=== PATIENT | female | born 1990 | race Caucasian/White ===

== ENCOUNTER 2017-08-23 12:26 | Emergency (ER) | payer MEDICAID ==
[~2017-08-23] VITALS: Ht 170.2 cm; Wt 56.0 kg
[2017-08-23 12:34] VITALS: BP 124/87; Ht 170.2 cm; Wt 56.0 kg
== END 2017-08-23 14:12 | disposition home or self-care (01) ==
LOC: ED 12:26
DX: S62.604A Fracture of unspecified phalanx of right ring finger, initial encounter for closed fracture (principal); S51.011A Laceration without foreign body of right elbow, initial encounter; S61.411A Laceration without foreign body of right hand, initial encounter; S80.211A Abrasion, right knee, initial encounter; S60.511A Abrasion of right hand, initial encounter; W54.8XXA Other contact with dog, initial encounter; Y93.K1 Activity, walking an animal; Y92.89 Other specified places as the place of occurrence of the external cause; Y99.8 Other external cause status
CPT/HCPCS: 90715

== ENCOUNTER 2017-11-13 10:14 | Emergency (ER) | payer OTHER ==
[~2017-11-13] VITALS: Ht 170.2 cm; Wt 54.4 kg
[2017-11-13 10:18] VITALS: Ht 170.2 cm; Wt 54.4 kg
[2017-11-13 11:51] VITALS: BP 111/59
[2017-11-13 12:19] LABS: AMPHETAMINE QUAL UR NONE DETECTED (See below)
== END 2017-11-13 11:52 | disposition home or self-care (01) ==
LOC: ED 10:14
PROVIDERS: Emergency Medicine Emergency Medical Services
DX: F10.129 Alcohol abuse with intoxication, unspecified (principal); F31.9 Bipolar disorder, unspecified
CPT/HCPCS: G0480

== ENCOUNTER 2020-01-01 16:55 | Emergency (ER) | payer OTHER, SELFPAY ==
[~2020-01-01] VITALS: Ht 165.1 cm; Wt 52.2 kg
[2020-01-01 16:59] VITALS: BP 118/76; Ht 165.1 cm; Wt 52.2 kg
== END 2020-01-01 18:17 | disposition left against medical advice (07) ==
LOC: ED 16:55
DX: R53.1 Weakness (principal); R05 Cough; R06.02 Shortness of breath; Z20.828 Contact with and (suspected) exposure to other viral communicable diseases
CPT/HCPCS: U0003-CS

== ENCOUNTER 2020-01-01 20:50 | Emergency (ER) | payer OTHER ==
[~2020-01-01] VITALS: Ht 170.2 cm; Wt 52.2 kg
[2020-01-01 21:04] VITALS: Ht 170.2 cm; Wt 52.2 kg
[2020-01-01 23:33] LABS: UA SPECIFIC GRAVITY 1.015 (1.005-1.035); microscopic required? YES; urine erythrocyte TRACE (NEGATIVE)
[2020-01-02 00:02] LABS: BASOPHIL % 0.3 % (0-2); PLATELET COUNT 272 x10^3mcL (130-400); RED CELL DISTRIBUTION WIDTH 14.5 % (11.5-14.5)
[2020-01-02 00:17] LABS: CALCIUM 7.3 mg/dL (8.5-10.1); CARBON DIOXIDE 29.3 mmol/L (21-32); CHLORIDE SERUM 101 mmol/L (98-107); CREATININE SERUM 0.6 mg/dL (0.6-1.0); GFR1 > 60 mL/min; GLUCOSE SERUM 61 mg/dL (74-106); SODIUM SERUM 139 mmol/L (136-145)
[2020-01-02 00:21] LABS: ALKALINE PHOSPHATASE 46 U/L (46-116); ALT/SGPT 119 U/L (14-59); AST/SGOT 112 U/L (15-37); BILIRUBIN TOTAL 0.4 mg/dL (0.20-1.00); C REACTIVE PROTEIN 7.4 mg/dL (<=0.9); LACTIC DEHYDROGENASE (LDH) 130 U/L (100-190)
[2020-01-02 00:23] LABS: ALBUMIN 3.1 g/dL (3.4-5.0)
[2020-01-02 03:32] VITALS: BP 104/76
== END 2020-01-02 03:32 | disposition home or self-care (01) ==
LOC: ED 20:50
PROVIDERS: Emergency Medicine
DX: E86.0 Dehydration (principal); R11.10 Vomiting, unspecified
CPT/HCPCS: 36600; 83880; J2405; J7030; Q0092; U0003-CS

== ENCOUNTER 2020-01-27 15:06 | Emergency (ER) | payer OTHER ==
[~2020-01-27] VITALS: Ht 170.2 cm; Wt 54.4 kg
[2020-01-27 15:09] VITALS: Ht 170.2 cm; Wt 54.4 kg
[2020-01-27 16:17] LABS: BASOPHIL % 0.2 % (0-2); PLATELET COUNT 387 x10^3mcL (130-400)
[2020-01-27 16:18] LABS: RED CELL DISTRIBUTION WIDTH 14.6 % (11.5-14.5)
[2020-01-27 16:51] LABS: CALCIUM 9.1 mg/dL (8.5-10.1); CARBON DIOXIDE 22.6 mmol/L (21-32); CHLORIDE SERUM 97 mmol/L (98-107); CREATININE SERUM 0.8 mg/dL (0.6-1.0); GFR1 > 60 mL/min; GLUCOSE SERUM 93 mg/dL (74-106); SODIUM SERUM 137 mmol/L (136-145)
[2020-01-27 16:56] LABS: ALBUMIN 4.1 g/dL (3.4-5.0); ALKALINE PHOSPHATASE 78 U/L (46-116); ALT/SGPT 46 U/L (14-59); AST/SGOT 21 U/L (15-37); BILIRUBIN TOTAL 0.6 mg/dL (0.20-1.00)
[2020-01-27 21:07] VITALS: BP 109/79
== END 2020-01-27 21:07 | disposition home or self-care (01) ==
LOC: ED 15:06
PROVIDERS: Emergency Medicine
DX: F10.239 Alcohol dependence with withdrawal, unspecified (principal); R11.10 Vomiting, unspecified
CPT/HCPCS: J2060; J7030

== ENCOUNTER 2020-01-28 19:56 | Inpatient (IN) | payer OTHER ==
[~2020-01-28] VITALS: Ht 170.2 cm; Wt 54.4 kg
[2020-01-28 20:04] VITALS: Ht 170.2 cm; Wt 54.4 kg
[2020-01-28 20:49] LABS: BASOPHIL % 1.4 % (0-2); PLATELET COUNT 293 x10^3mcL (130-400); RED CELL DISTRIBUTION WIDTH 14.4 % (11.5-14.5)
[2020-01-28 20:58] LABS: CALCIUM 8.1 mg/dL (8.5-10.1); CARBON DIOXIDE 26.1 mmol/L (21-32); CHLORIDE SERUM 99 mmol/L (98-107); CREATININE SERUM 0.7 mg/dL (0.6-1.0); GFR1 > 60 mL/min; GLUCOSE SERUM 125 mg/dL (74-106); POTASSIUM SERUM 3.5 mmol/L (3.5-5.1); SODIUM SERUM 135 mmol/L (136-145)
[2020-01-28 21:09] LABS: ALBUMIN 3.4 g/dL (3.4-5.0); ALKALINE PHOSPHATASE 66 U/L (46-116); ALT/SGPT 48 U/L (14-59); AST/SGOT 71 U/L (15-37); BILIRUBIN TOTAL 0.5 mg/dL (0.20-1.00); TOTAL PROTEIN, SERUM 6.6 g/dL (6.4-8.2)
[2020-01-29] VITALS (7 sets, daily range): BP systolic 98–135; BP diastolic 58–88
[2020-01-29] MEDS ORDERED: TRILEPTAL150 MG PO (00:01)
[2020-01-29 06:20] LABS: BASOPHIL % 0.1 % (0-2); PLATELET COUNT 185 x10^3mcL (130-400)
[2020-01-29 06:21] LABS: RED CELL DISTRIBUTION WIDTH 14.6 % (11.5-14.5)
[2020-01-29 07:36] LABS: CALCIUM 7.7 mg/dL (8.5-10.1); CARBON DIOXIDE 25.8 mmol/L (21-32); CHLORIDE SERUM 99 mmol/L (98-107); CREATININE SERUM 0.6 mg/dL (0.6-1.0); GFR1 > 60 mL/min; GLUCOSE SERUM 131 mg/dL (74-106); MAGNESIUM 1.7 mg/dL (1.8-2.4); PHOSPHOROUS 2.1 mg/dL (2.5-4.9); POTASSIUM SERUM 3.6 mmol/L (3.5-5.1); SODIUM SERUM 133 mmol/L (136-145)
[2020-01-29 08:49] LABS: UA SPECIFIC GRAVITY 1.015 (1.005-1.035); microscopic required? YES; urine erythrocyte NEGATIVE (NEGATIVE)
[2020-01-29 09:01] LABS: AMPHETAMINE QUAL UR NONE DETECTED (See below)
[2020-01-29 21:16] LABS: ALBUMIN 2.9 g/dL (3.4-5.0); BILIRUBIN DIRECT 0.44 mg/dL (0.0-0.2); BILIRUBIN TOTAL 0.9 mg/dL (0.20-1.00); TOTAL PROTEIN, SERUM 5.4 g/dL (6.4-8.2)
[2020-01-30 03:00] VITALS: BP 95/60
[2020-01-30 06:10] LABS: BASOPHIL % 0.2 % (0-2); PLATELET COUNT 154 x10^3mcL (130-400); RED CELL DISTRIBUTION WIDTH 14.4 % (11.5-14.5)
[2020-01-30 06:29] LABS: CALCIUM 7.7 mg/dL (8.5-10.1); CHLORIDE SERUM 102 mmol/L (98-107); CREATININE SERUM 0.6 mg/dL (0.6-1.0); GFR1 > 60 mL/min; GLUCOSE SERUM 108 mg/dL (74-106); POTASSIUM SERUM 3.5 mmol/L (3.5-5.1); SODIUM SERUM 135 mmol/L (136-145)
[2020-01-30 06:33] LABS: ALKALINE PHOSPHATASE 48 U/L (46-116); ALT/SGPT 115 U/L (14-59); AST/SGOT 126 U/L (15-37); BILIRUBIN DIRECT 0.43 mg/dL (0.0-0.2); BILIRUBIN TOTAL 0.9 mg/dL (0.20-1.00); MAGNESIUM 1.8 mg/dL (1.8-2.4); PHOSPHOROUS 1.7 mg/dL (2.5-4.9)
[2020-01-30 06:39] LABS: ALBUMIN 2.8 g/dL (3.4-5.0); TOTAL PROTEIN, SERUM 5.3 g/dL (6.4-8.2)
[2020-01-30 08:00] VITALS: BP 95/65
[2020-01-30 11:36] VITALS: BP 107/74
[2020-01-30 13:52] LABS: ALBUMIN 2.9 g/dL (3.4-5.0); BILIRUBIN DIRECT 0.45 mg/dL (0.0-0.2); BILIRUBIN TOTAL 0.89 mg/dL (0.20-1.00); TOTAL PROTEIN, SERUM 5.5 g/dL (6.4-8.2)
[2020-01-30 16:00] VITALS: BP 96/61
[2020-01-30 19:53] VITALS: BP 116/58
[2020-01-30 23:00] VITALS: BP 106/82
[2020-01-31 06:19] LABS: BASOPHIL % 0 % (0-2); PLATELET COUNT 145 x10^3mcL (130-400); RED CELL DISTRIBUTION WIDTH 14.3 % (11.5-14.5)
[2020-01-31 07:33] LABS: ALKALINE PHOSPHATASE 51 U/L (46-116); BILIRUBIN DIRECT 0.47 mg/dL (0.0-0.2); CALCIUM 7.9 mg/dL (8.5-10.1); CARBON DIOXIDE 25.6 mmol/L (21-32); CHLORIDE SERUM 102 mmol/L (98-107); CREATININE SERUM 0.6 mg/dL (0.6-1.0); GFR1 > 60 mL/min; GLUCOSE SERUM 99 mg/dL (74-106); MAGNESIUM 1.7 mg/dL (1.8-2.4); PHOSPHOROUS 2.7 mg/dL (2.5-4.9); POTASSIUM SERUM 3.3 mmol/L (3.5-5.1); SODIUM SERUM 134 mmol/L (136-145)
[2020-01-31 07:34] LABS: ALBUMIN 2.8 g/dL (3.4-5.0); AST/SGOT 1628 U/L (15-37); TOTAL PROTEIN, SERUM 5.4 g/dL (6.4-8.2)
[2020-01-31 07:35] LABS: ALT/SGPT 1175 U/L (14-59)
[2020-01-31 07:57] VITALS: BP 101/63
[2020-01-31 12:38] VITALS: BP 111/79
[2020-01-31 16:01] VITALS: BP 115/84
[2020-01-31 20:20] VITALS: BP 96/65
[2020-02-01 00:34] VITALS: BP 107/78
[2020-02-01 04:00] VITALS: BP 120/79
[2020-02-01 05:46] LABS: BASOPHIL % 0.3 % (0-2); RED CELL DISTRIBUTION WIDTH 14.5 % (11.5-14.5)
[2020-02-01 05:49] LABS: PLATELET COUNT 127 x10^3mcL (130-400)
[2020-02-01 06:07] LABS: ALKALINE PHOSPHATASE 54 U/L (46-116); BILIRUBIN TOTAL 0.63 mg/dL (0.20-1.00); CALCIUM 7.7 mg/dL (8.5-10.1); CARBON DIOXIDE 26.5 mmol/L (21-32); CHLORIDE SERUM 103 mmol/L (98-107); CREATININE SERUM 0.6 mg/dL (0.6-1.0); GFR1 > 60 mL/min; GLUCOSE SERUM 94 mg/dL (74-106); MAGNESIUM 1.9 mg/dL (1.8-2.4); PHOSPHOROUS 3.1 mg/dL (2.5-4.9); POTASSIUM SERUM 3.3 mmol/L (3.5-5.1); SODIUM SERUM 136 mmol/L (136-145)
[2020-02-01 06:08] LABS: ALBUMIN 2.6 g/dL (3.4-5.0); TOTAL PROTEIN, SERUM 5.2 g/dL (6.4-8.2)
[2020-02-01 06:09] LABS: ALT/SGPT 1930 U/L (14-59); AST/SGOT 1293 U/L (15-37)
[2020-02-01 07:15] VITALS: BP 112/78
[2020-02-01 11:40] VITALS: BP 117/88
[2020-02-01 15:15] VITALS: BP 110/80
[2020-02-01 18:21] LABS: ALKALINE PHOSPHATASE 62 U/L (46-116); AST/SGOT 573 U/L (15-37); BILIRUBIN TOTAL 0.9 mg/dL (0.20-1.00); CALCIUM 8.6 mg/dL (8.5-10.1); CARBON DIOXIDE 28.2 mmol/L (21-32); CHLORIDE SERUM 104 mmol/L (98-107); CREATININE SERUM 0.5 mg/dL (0.6-1.0); GFR1 > 60 mL/min; GLUCOSE SERUM 134 mg/dL (74-106); POTASSIUM SERUM 3.6 mmol/L (3.5-5.1); SODIUM SERUM 138 mmol/L (136-145); TOTAL PROTEIN, SERUM 6.2 g/dL (6.4-8.2)
[2020-02-01 18:25] LABS: ALBUMIN 3.1 g/dL (3.4-5.0)
[2020-02-01 18:26] LABS: ALT/SGPT 1743 U/L (14-59)
[2020-02-02 03:27] LABS: BASOPHIL % 0.2 % (0-2); PLATELET COUNT 142 x10^3mcL (130-400)
[2020-02-02 03:28] LABS: RED CELL DISTRIBUTION WIDTH 15.1 % (11.5-14.5)
[2020-02-02 04:05] LABS: CALCIUM 8.2 mg/dL (8.5-10.1); CARBON DIOXIDE 28.8 mmol/L (21-32); CHLORIDE SERUM 106 mmol/L (98-107); CREATININE SERUM 0.6 mg/dL (0.6-1.0); GFR1 > 60 mL/min; GLUCOSE SERUM 100 mg/dL (74-106); POTASSIUM SERUM 3.7 mmol/L (3.5-5.1); SODIUM SERUM 139 mmol/L (136-145)
[2020-02-02 04:11] LABS: CALCIUM 8.1 mg/dL (8.5-10.1); CARBON DIOXIDE 28.9 mmol/L (21-32); CHLORIDE SERUM 105 mmol/L (98-107); CREATININE SERUM 0.6 mg/dL (0.6-1.0); GFR1 > 60 mL/min; GLUCOSE SERUM 98 mg/dL (74-106); MAGNESIUM 1.9 mg/dL (1.8-2.4); PHOSPHOROUS 3.1 mg/dL (2.5-4.9); POTASSIUM SERUM 3.7 mmol/L (3.5-5.1); SODIUM SERUM 138 mmol/L (136-145)
[2020-02-02 04:20] LABS: ALKALINE PHOSPHATASE 55 U/L (46-116); AST/SGOT 284 U/L (15-37); BILIRUBIN TOTAL 0.7 mg/dL (0.20-1.00); CALCIUM 8.2 mg/dL (8.5-10.1); CHLORIDE SERUM 105 mmol/L (98-107); CREATININE SERUM 0.6 mg/dL (0.6-1.0); GFR1 > 60 mL/min; GLUCOSE SERUM 100 mg/dL (74-106); POTASSIUM SERUM 3.7 mmol/L (3.5-5.1); SODIUM SERUM 138 mmol/L (136-145)
[2020-02-02 04:30] LABS: ALBUMIN 2.7 g/dL (3.4-5.0); ALT/SGPT 1328 U/L (14-59); TOTAL PROTEIN, SERUM 5.7 g/dL (6.4-8.2)
[2020-02-02 08:00] VITALS: BP 96/61
[2020-02-02 12:00] VITALS: BP 108/74
[2020-02-02 16:00] VITALS: BP 94/69
[2020-02-02 18:24] LABS: ALKALINE PHOSPHATASE 62 U/L (46-116); AST/SGOT 179 U/L (15-37); BILIRUBIN TOTAL 0.6 mg/dL (0.20-1.00); CALCIUM 8.6 mg/dL (8.5-10.1); CARBON DIOXIDE 28.1 mmol/L (21-32); CHLORIDE SERUM 105 mmol/L (98-107); CREATININE SERUM 0.5 mg/dL (0.6-1.0); GFR1 > 60 mL/min; GLUCOSE SERUM 91 mg/dL (74-106); SODIUM SERUM 138 mmol/L (136-145)
[2020-02-02 18:26] LABS: ALBUMIN 2.9 g/dL (3.4-5.0); ALT/SGPT 1113 U/L (14-59); TOTAL PROTEIN, SERUM 6.1 g/dL (6.4-8.2)
[2020-02-02 20:00] VITALS: BP 109/81
[2020-02-02 22:30] VITALS: BP 103/78
[2020-02-03 04:00] VITALS: BP 109/43; BP 111/79
[2020-02-03 05:00] VITALS: BP 94/58
[2020-02-03 07:09] LABS: ALKALINE PHOSPHATASE 63 U/L (46-116); ALT/SGPT 904 U/L (14-59); AST/SGOT 133 U/L (15-37); BILIRUBIN TOTAL 0.6 mg/dL (0.20-1.00); CALCIUM 8.5 mg/dL (8.5-10.1); CARBON DIOXIDE 27.9 mmol/L (21-32); CHLORIDE SERUM 104 mmol/L (98-107); CREATININE SERUM 0.6 mg/dL (0.6-1.0); GFR1 > 60 mL/min; GLUCOSE SERUM 92 mg/dL (74-106); SODIUM SERUM 140 mmol/L (136-145)
[2020-02-03 07:27] LABS: ALBUMIN 2.8 g/dL (3.4-5.0)
[2020-02-03 08:00] VITALS: BP 97/73
[2020-02-03] MEDS ORDERED: LEXAPRO10 MG PO (11:24)
[2020-02-03] MEDS ORDERED: ELIQUIS5 MG PO ×2 (11:24→11:25)
[2020-02-03] MEDS ORDERED: QUETIAPINE FUMA25 M1 PO (11:25)
[2020-02-03 12:00] VITALS: BP 110/42
[2020-02-03 15:15] VITALS: BP 109/79
[2020-02-03 17:22] VITALS: BP 113/84
[2020-02-03 17:43] LABS: ALKALINE PHOSPHATASE 77 U/L (46-116); ALT/SGPT 832 U/L (14-59); AST/SGOT 99 U/L (15-37); BILIRUBIN TOTAL 0.45 mg/dL (0.20-1.00); CALCIUM 8.3 mg/dL (8.5-10.1); CHLORIDE SERUM 103 mmol/L (98-107); CREATININE SERUM 0.8 mg/dL (0.6-1.0); GFR1 > 60 mL/min; GLUCOSE SERUM 114 mg/dL (74-106); POTASSIUM SERUM 4.1 mmol/L (3.5-5.1); SODIUM SERUM 138 mmol/L (136-145); TOTAL PROTEIN, SERUM 6.5 g/dL (6.4-8.2)
[2020-02-03 17:46] LABS: ALBUMIN 3.1 g/dL (3.4-5.0)
== END 2020-02-03 18:33 | disposition home or self-care (01) | DRG 817 ==
LOC: ED 19:56 → DU 21:44 → ED 21:44 → IC 21:44
PROVIDERS: Hospitalist; Internal Medicine; Specialist; ADMIT Hospitalist; ATTEND Hospitalist
DX: T39.1X2A Poisoning by 4-Aminophenol derivatives, intentional self-harm, initial encounter (principal); K75.89 Other specified inflammatory liver diseases; F32.9 Major depressive disorder, single episode, unspecified; Y92.89 Other specified places as the place of occurrence of the external cause; Z20.828 Contact with and (suspected) exposure to other viral communicable diseases
CPT/HCPCS: 82962; G0378; G0480; J0132; J2060; J2405; J7030; Q0092; U0003-CS

== ENCOUNTER 2020-02-08 10:16 | Emergency (ER) | payer OTHER ==
[~2020-02-08] VITALS: Ht 170.2 cm; Wt 50.3 kg
[~2020-02-08 10:16] MED LIST: ELIQUIS5 MG PO; LEXAPRO10 MG PO; QUETIAPINE FUMA25 M1 PO; TRILEPTAL150 MG PO
[2020-02-08 10:20] VITALS: Ht 170.2 cm; Wt 50.3 kg
--- NOTE | 2020-02-08 10:35 | NUR ---
PT BROUGHT TO ED BY HER FATHER FOR OVERDOSE LAST NIGHT OF 20 ELIQUIS 5MG, CITALOPRAM 10MG TO "GO TO SLEEP". PT STS THAT SHE WANTED TO SLEEP, BUT ALSO KNEW THAT THESE MEDICATIONS DONT MAKE HER "SLEEPY". PT ASKED IF INTENT WAS TO "NEVER WAKE UP", PT STS "NO I DID NOT WANT , OR HARM ANYONE ELSE". PT APPEARS TO HAVE MILD TREMORS AND STS THAT THIS STARTED HAPPENING AT 0800 TODAY. PT HAS STEADY GAIT TO [facility]. PT PLACED ON CM, SINUS TACH NOTED. VSS. RESP E/U. SKINS WNL. NO DISTRESS NOTED. PT IN CLEAR AND FULL VIEW OF NURSING STATION. PT STS THAT SHE WAS HERE LAST WEEK ON 5150 FOR TAKING HANDFUL OF TYLENOL.
--- NOTE | 2020-02-08 10:36 | NUR ---
MD COLLADO AT BEDSIDE FOR MSE.
--- NOTE | 2020-02-08 10:36 | NUR ---
PT DENIES AND BLOOD IN URINE OR STOOL. PT DENIES FALLIGN RECENTLY. PT DENIES ANY S/S OF SOB/CHEST PAIN/BLURRY VISION/HEADACHE
--- NOTE | 2020-02-08 10:44 | NUR ---
SPOKE TO MYLES AT POISON CONTROL: MONITOR BLEEDING: X4HR CBC,PT,INR FOR THE NEXT 8-12HRS MONITOR FOR SEDATION, PROLONGED QTC (COULD VALENCIA EUP TO 12HRS TO SHOW) 12HR OBSERVATION, PLACE ON CARDIAC, X6HRS EKG, QTC INCRASING REPLACE ELECTROLYTES WITH K,MAG,CA, CHECK TYLENOL LEVELS, UDS. GIVEN BENZODIAZEPINES FOR AGGITATION, TREMORS MD GARDUNO MADE AWARE.
--- NOTE | 2020-02-08 10:49 | NUR ---
PT MEDICATED PER ELIFRHUYEN RN TO RESUME CARE OF PT.
[2020-02-08 10:54] LABS: BASOPHIL % 0.4 % (0-2); RED CELL DISTRIBUTION WIDTH 15.1 % (11.5-14.5)
[2020-02-08 10:55] LABS: PLATELET COUNT 627 x10^3mcL (130-400)
[2020-02-08 10:57] LABS: CALCIUM 8.8 mg/dL (8.5-10.1); CHLORIDE SERUM 103 mmol/L (98-107); CREATININE SERUM 0.8 mg/dL (0.6-1.0); GFR1 > 60 mL/min; GLUCOSE SERUM 111 mg/dL (74-106); POTASSIUM SERUM 4.5 mmol/L (3.5-5.1); SODIUM SERUM 139 mmol/L (136-145)
[2020-02-08 11:01] LABS: ALBUMIN 3.7 g/dL (3.4-5.0); ALKALINE PHOSPHATASE 93 U/L (46-116); ALT/SGPT 325 U/L (14-59); AST/SGOT 35 U/L (15-37); BILIRUBIN TOTAL 0.4 mg/dL (0.20-1.00); TOTAL PROTEIN, SERUM 7.7 g/dL (6.4-8.2)
--- NOTE | 2020-02-08 12:00 | NUR ---
PT IN POSITION OF COMFORT, PLAYING ON PHONE. VSS. RESP E/U. NO DISTRESS NOTED. WILL CONTINUE TO MONITOR.
--- NOTE | 2020-02-08 12:50 | NUR ---
PT AMBULTED TO RESTROOM WITH STEADY GAIT.
--- NOTE | 2020-02-08 13:00 | NUR ---
TELE PSYCH IN PROGRESS.
--- NOTE | 2020-02-08 13:13 | NUR ---
TELE PSYCH COMPLETED.
--- NOTE | 2020-02-08 15:50 | NUR ---
ALL PT BELONGINGS TAKEN AND PLACED IN RADIO ROOM. PT BEING COOPERATIVE AT THIS TIME. PT DENIES SI/HI AT THIS TIME. PT IN FULL AND CLEAR VIEW OF NURSING STATION. VSS. RESP E/U, NO DISTRESS NOTED. WILL CONTINUE TO MONITOR.
--- NOTE | 2020-02-08 16:15 | NUR ---
EKG IN PROGRESS
--- NOTE | 2020-02-08 17:04 | NUR ---
PT PALCED IN UPRIGHT POSITION FOR DINNER TRAY. PATENT AIRWAY NOTED. WILL CONTINUE TO MONITOR.
--- NOTE | 2020-02-08 17:07 | NUR ---
MOTHER DROPPED OFF [employer] FOR PT WORKS AND REQUESTING TO FILL OUT. PLEASE CALL FOR THEM TO PICK IT UP JENAE. PAPERS ARE IN CHART FOR ADMITTING DOCTOR TO SIGN.
--- NOTE | 2020-02-08 18:00 | NUR ---
PT ATE APPROX 305 OF DINNER TRAY. PT STS THAT SHE IS JUST NOT HUNGRY AT THIS TIME. PT REQUESTED TO LEAVE TRAY AT BEDSIDE INCASE SHE GETS HUNGRY LATER.
--- NOTE | 2020-02-08 18:27 | NUR ---
PT RESTING WITH EYES OPEN, VISBIBLE CHEST RISE AND FALL. VSS. RESP E/U, SKINS WNL. WILL CONTINUE TO MONITOR.
--- NOTE | 2020-02-08 19:14 | NUR ---
REPORT GIVEN TO JENNIFER VALDEZ TO ASSUME CARE OF PT.
--- NOTE | 2020-02-08 19:20 | NUR ---
ASSUMING CARE OF PT AT THIS TIME. PT LAYING IN POSITION OF COMFORT. AWAKE AND ALERT. AA/OX4. RESP EVEN AND UNLABORED. PT NOTED TO HAVE TREMORS IN EXTREMITIES. PT ASKED "CAN I GET SOME ATIVAN?" INFORMED PT I WILL ASK ADMITTING MD. PT ON FULL CM. SPEAKING FULL, CLEAR AND COMPLETE SENTENCES. WILL CONT TO MONITOR.
--- NOTE | 2020-02-08 19:27 | NUR ---
5150 IN CHART. PT IN FRONT OF NURSES STATION. ALL BELONGS REMOVED EXPECT CELL PHONE. PT ALLOWED TO HAVE PHONE SINCE SHE IS CALM AND COOPERATING. PT DENIES SI AT THIS TIME. DENIES TRYING TO HURT HERSELF. WHEN ASKED WHY SHE TOOK THE PILLS PT STATES " I DONT KNOW I JUST WANTED TO TURN MY BRAIN OFF FOR A FEW." BED IN LOWEST POSITION. WILL CONT TO MONITOR.
--- NOTE | 2020-02-08 19:58 | NUR ---
PT MEDICATED PER MD ORDER FOR TREMORS AND ANXIETY. SEE EMAR. PT AA/OX4. RESP EVEN AND UNLABORED. PT ON FULL CM. WILL CONT TO MONITOR.
--- NOTE | 2020-02-08 20:21 | NUR ---
PT STATES "IM STARTING TO FEEL BETTER BUT I STILL HAVE A HARD TIME MOVING MY LEGS." ADMITTING MD AWARE. VSS. SLIGHT TREMORS NOTED TO BILATERAL LOWER EXTERMITIES. PT ON FULL CM. PT IN FRONT OF NURSES STATION. WILL CONT TO MONITOR.
--- NOTE | 2020-02-08 21:02 | NUR ---
PT AA/OX4. RESP EVEN AND UNLABORED. PT STATES "I FEEL MUCH BETTER. I CAN MOVE MY LEGS WITH NO CRAMPS NOW." PT ON FULL CM. WILL CONT TO MONITOR.
--- NOTE | 2020-02-08 21:47 | NUR ---
PT LAYING IN POSITION OF COMFORT. EASILY AROUSABLE. PT STATES THAT SHE IS FEELING BETTER. PT ON FULL CM. AA/OX4. RESP EVEN AND UNLABORED. PT CALM AND COOPERATIVE. WILL CONT TO MONITOR.
[2020-02-08 22:13] LABS: microscopic required? NO
--- NOTE | 2020-02-08 22:31 | NUR ---
PT LAYING ON SIDE IN POSITION OF COMFORT. EASILY AROUSABLE. RESP EVEN AND UNLABORED. PT DENIES PAIN. LIGHTS TURNED DOWN AND CALL LIGHT WITHIN REACH. PT IN FRONT OF NURSES STATION. PT CALM AND COOPERATIVE. STATES "I FEEL MUCH BETTER." PT ON FULL CM. WILL CONT TO MONITOR.
[2020-02-08 22:58] LABS: UA SPECIFIC GRAVITY 1.015 (1.005-1.035); urine erythrocyte NEGATIVE (NEGATIVE)
[2020-02-08 23:02] LABS: AMPHETAMINE QUAL UR NONE DETECTED (See below)
--- NOTE | 2020-02-08 23:32 | NUR ---
PT LAYING ON SIDE IN POSITION OF COMFORT. RESP EVEN AND UNLABORED. CHEST RISE AND FALL EVEN AND UNLABORED. PT ON FULL CM. WILL CONT TO MONITOR.
--- NOTE | 2020-02-09 01:23 | NUR ---
PT LAYING ON RIGHT SIDE IN POSITION OF COMFORT. EASILY AROUSABLE. RESP EVEN AND UNLABORED. IV INFUSING WITH NO S/S OF INFILTRATION. PT ON FULL CM AND IN FRONT OF NURSES STATION. WILL CONT TO MONITOR.
--- NOTE | 2020-02-09 03:30 | NUR ---
PT LAYING ON LEFT SIDE IN POSITION OF COMFORT. EASILY AROUSABLE. RESP EVEN AND UNLABORED. CHEST RISE AND FALL IS EVEN AND UNLABORED. IV INFUSING WITH NO S/S OF INFILTRATION. PT ON FULL CM AND O2 MONITOR. WILL CONT TO MONITOR.
[2020-02-09 05:18] LABS: BASOPHIL % 0.4 % (0-2); RED CELL DISTRIBUTION WIDTH 15.1 % (11.5-14.5)
[2020-02-09 05:19] LABS: PLATELET COUNT 529 x10^3mcL (130-400)
[2020-02-09 05:32] LABS: CALCIUM 8.3 mg/dL (8.5-10.1); CARBON DIOXIDE 25.8 mmol/L (21-32); CHLORIDE SERUM 105 mmol/L (98-107); CREATININE SERUM 0.9 mg/dL (0.6-1.0); GFR1 > 60 mL/min; GLUCOSE SERUM 83 mg/dL (74-106); MAGNESIUM 2.1 mg/dL (1.8-2.4); PHOSPHOROUS 3.3 mg/dL (2.5-4.9); POTASSIUM SERUM 3.9 mmol/L (3.5-5.1); SODIUM SERUM 138 mmol/L (136-145)
--- NOTE | 2020-02-09 07:00 | NUR ---
PT LAYING IN POSITION OF COMFORT. EASILY AROUSABLE. IV INFUSING. PT ON FULL CM. WILL CONT TO MONITOR.
--- NOTE | 2020-02-09 07:24 | NUR ---
REPORT GIVEN TO WALE VALDEZ TO ASSUME CARE OF PT.
--- NOTE | 2020-02-09 08:25 | NUR ---
ARRIVED TO PT'S ROOM WITH LH IV MCFP PULLED OUT. PT STS SHE FEELS SOME DISCOMFORT. NO SIGNS OF INFILTRATION NOTED. IV REMOVED FOR PT SAFETY AND CATHETHER WAS INTACT. NEW IV INSERT PLACED ON RH 20G . TAPED AND SECURED.
--- NOTE | 2020-02-09 10:44 | NUR ---
PT CALLED NURSING STATION REPORTING SHE IS FEELING ANXIOUS. PT STATES SHE IS "FEELING REGRETFUL" ABOUT OVERDOSE YESTERDAY. CURRENTLY DENIES SI. PT IS AWAKE, ALERT, RESP E/U.
--- NOTE | 2020-02-09 10:54 | NUR ---
PT MEDICATED PER PRN ORDER.
--- NOTE | 2020-02-09 13:19 | NUR ---
CHAPPERONED PT TO RESTROOM; AMBULATORY WITH STEADY GAIT.
--- NOTE | 2020-02-09 14:28 | NUR ---
INFECTION CONTROL MANAGER CALLED IN TO SPEAK WITH PT. PT GIVEN CORDLESS PHONE.
--- NOTE | 2020-02-09 16:21 | NUR ---
PT REPORTING FEELING ANXIOUS AGAIN. STATES "IM TIRED OF BEING IN THIS ROOM AND NOT BEING ABLE TO TALK TO ANYBODY." PT COOPERATIVE. LAYING SUPINE IN BED. AWAKE, ALERT, RESP E/U WITH NAD NOTED.
--- NOTE | 2020-02-09 19:40 | NUR ---
RESPONDED TO PT'S CALL LIGHT. PT ASKED "CAN I BE DISCONNECTED SO I CAN USE THE RESTROOM?" CHAPPERONED PT TO RESTROOM. STEADY GAIT; NO DISTRESS. COOPERATIVE.
--- NOTE | 2020-02-09 20:11 | NUR ---
PT IN BED SEEN TALKING ON PHONE AND EATING DINNER. NO DISTRESS; REMAINS COOPERATIVE. PT GIVEN APPLE JUICE UPON REQUEST.
--- NOTE | 2020-02-09 22:48 | NUR ---
NO SITTER AVAILABLE UNTIL MORNING.
--- NOTE | 2020-02-10 00:16 | NUR ---
PT LAYING IN GURNEY IN LT LATERAL POSITION, RESP E/U WITH EYES CLOSED. REMAINS CONNECTED TO FULL CM. NO DISTRESS.
--- NOTE | 2020-02-10 01:34 | NUR ---
PT AAO4, RESP E/U, NO DISTRESS. GIVEN WATER UPON REQUEST.
--- NOTE | 2020-02-10 01:49 | NUR ---
REPORT GIVEN TO JOSÉ MIGUEL MILLER TO ASSUME CARE.
--- NOTE | 2020-02-10 03:26 | NUR ---
PATIENT IS RESTING ON HER LEFT SIDE, RESP E/U, NAD NOTED. ON FULL CIRCUIT CLERK AND PULSE OX IN DIRECT SIGHT OF NURSES'S STATION.
--- NOTE | 2020-02-10 05:17 | NUR ---
PATIENT RESTING IN GURNEY, RESP E/U, NAD NOTED. IN DIRECT SIGHT OF NURSES'S STATION.
[2020-02-10 06:20] LABS: BASOPHIL % 0.3 % (0-2)
[2020-02-10 06:24] LABS: PLATELET COUNT 496 x10^3mcL (130-400); RED CELL DISTRIBUTION WIDTH 15.8 % (11.5-14.5)
[2020-02-10 07:22] LABS: CALCIUM 7.8 mg/dL (8.5-10.1); CARBON DIOXIDE 28.7 mmol/L (21-32); CHLORIDE SERUM 103 mmol/L (98-107); CREATININE SERUM 0.7 mg/dL (0.6-1.0); GFR1 > 60 mL/min; GLUCOSE SERUM 85 mg/dL (74-106); MAGNESIUM 1.9 mg/dL (1.8-2.4); PHOSPHOROUS 3.1 mg/dL (2.5-4.9); POTASSIUM SERUM 3.7 mmol/L (3.5-5.1); SODIUM SERUM 135 mmol/L (136-145)
--- NOTE | 2020-02-10 07:22 | NUR ---
REPORT GIVEN TO JOSÉ MIGUEL GARCIA TO ASSUME CARE OF PT.
--- NOTE | 2020-02-10 07:30 | NUR ---
REPORT RECEIVED FROM ANGELA VALDEZ. PT IS IN BED AWAKE AND ALERT EATING BREAKFAST. PT IS MEDICALLY CLEARED, AND IS PENDING ADMISSION. PT IS AOX4, RESP E/U. SKIN IS WARM AND DRY.
--- NOTE | 2020-02-10 13:26 | NUR ---
PT BIB BY FATHER FOR DRUG OVERDOSE OF 20 ELIQIS 5MG, CITALOPRAM 10MG. PT STATES SHE JUST WANTED TO GO TO SLEEP. PT DENIES ANY INTENT TO HARM HERSELF OR OTHERS. PT PLACED ON 5150. PT HAS HX OF SUICIDE IDEATIONS. PT PLACED ON CLOTH CALENDER . PT STATES HAVING AXIETY CURRENTLY AND ASKING FOR ATIVAN. PT LAYING CALMLY IN GURNEY. PT A&O X4, RESP E/U, NO DISTRESS. WILL CONTINUE TO MONITOR.
--- NOTE | 2020-02-10 14:22 | NUR ---
PT A&O X4, RESP E/U, NO DISTRESS. PT IS LAYING IN GURNEY CALM AND COOPERATIVE. WILL CONTINUE TO MONITOR.
[2020-02-10 15:04] VITALS: BP 128/100
== END 2020-02-10 15:05 | disposition short-term general hospital (02) ==
LOC: ED 10:16 → IC 12:48 → DU 12:48 → ED 12:48 → IC 12:48 → DU 12:48
PROVIDERS: Hospitalist; Specialist
DX: F32.9 Major depressive disorder, single episode, unspecified (principal); T43.222A Poisoning by selective serotonin reuptake inhibitors, intentional self-harm, initial encounter; Y92.89 Other specified places as the place of occurrence of the external cause
CPT/HCPCS: G0480; J7030; U0003-CS

== ENCOUNTER 2020-07-05 11:35 | Emergency (ER) | payer OTHER ==
[~2020-07-05] VITALS: Ht 170.2 cm; Wt 51.3 kg
[2020-07-05 11:38] VITALS: Ht 170.2 cm; Wt 51.3 kg
[2020-07-05 12:29] LABS: CALCIUM 9.5 mg/dL (8.5-10.1); CARBON DIOXIDE 20.6 mmol/L (21-32); CHLORIDE SERUM 92 mmol/L (98-107); CREATININE SERUM 0.8 mg/dL (0.6-1.0); GFR1 > 60 mL/min; GLUCOSE SERUM 81 mg/dL (74-106); POTASSIUM SERUM 4.1 mmol/L (3.5-5.1); SODIUM SERUM 129 mmol/L (136-145)
[2020-07-05 12:33] LABS: ALKALINE PHOSPHATASE 52 U/L (46-116); ALT/SGPT 32 U/L (14-59); AST/SGOT 21 U/L (15-37); BILIRUBIN TOTAL 0.55 mg/dL (0.20-1.00); TOTAL PROTEIN, SERUM 7.4 g/dL (6.4-8.2)
[2020-07-05 12:44] LABS: BASOPHIL % 0.3 % (0.2-1.3); PLATELET COUNT 375 x10^3mcL (179-408)
[2020-07-05 12:47] LABS: RED CELL DISTRIBUTION WIDTH 15.5 % (12.3-17.7)
[2020-07-05 15:13] LABS: UA SPECIFIC GRAVITY >=1.030 (1.005-1.035); microscopic required? YES; urine erythrocyte NEGATIVE (NEGATIVE)
[2020-07-05] MEDS ORDERED: LATUDA40 M1 PO (15:27)
[2020-07-05] MEDS ORDERED: NEURONTIN300 MG PO (15:32)
[2020-07-05 17:14] LABS: BASOPHIL % 0.1 % (0.2-1.3); PLATELET COUNT 318 x10^3mcL (179-408)
[2020-07-05 17:18] LABS: RED CELL DISTRIBUTION WIDTH 16.1 % (12.3-17.7)
[2020-07-05 17:34] LABS: CALCIUM 8.5 mg/dL (8.5-10.1); CHLORIDE SERUM 95 mmol/L (98-107); CREATININE SERUM 0.8 mg/dL (0.6-1.0); GFR1 > 60 mL/min; GLUCOSE SERUM 75 mg/dL (74-106); POTASSIUM SERUM 4.1 mmol/L (3.5-5.1); SODIUM SERUM 131 mmol/L (136-145)
[2020-07-05 17:42] LABS: ALBUMIN 3.6 g/dL (3.4-5.0); ALKALINE PHOSPHATASE 45 U/L (46-116); ALT/SGPT 23 U/L (14-59); AST/SGOT 24 U/L (15-37); BILIRUBIN TOTAL 0.65 mg/dL (0.20-1.00); TOTAL PROTEIN, SERUM 6.6 g/dL (6.4-8.2)
--- NOTE | 2020-07-05 22:13 | NUR ---
Received patient information. Intake has been sent out to the following facilities for possible bed placement. [facility] Will keep ER informed of any updates
[2020-07-06 02:40] VITALS: BP 107/72
== END 2020-07-06 02:40 | disposition short-term general hospital (02) ==
LOC: ED 11:35
PROVIDERS: Emergency Medicine
DX: T50.7X2A Poisoning by analeptics and opioid receptor antagonists, intentional self-harm, initial encounter (principal); F10.10 Alcohol abuse, uncomplicated; Z20.822 Contact with and (suspected) exposure to COVID-19; Y92.89 Other specified places as the place of occurrence of the external cause
CPT/HCPCS: G0480; J2060; J2405; J7030; U0003